=== PATIENT | female | born 1995 | race African-American/Black ===

== ENCOUNTER 2020-04-05 09:05 | Emergency (ER) | payer MEDICAID ==
[~2020-04-05] VITALS: Ht 167.6 cm; Wt 52.1 kg
[2020-04-05] MEDS ORDERED: SODIUM CHLORIDE 0.9% 1,000 ML IV ONE (09:35)
[2020-04-05 10:01] LABS: BASOPHILS % 0.3 % (0.0-2.0); EOSINOPHILS % 2.5 % (0.0-5.0); HEMATOCRIT. 33.9 % (36.0-48.0); HEMOGLOBIN. 11.5 g/dL (12.0-16.0); LYMPHOCYTES % 37.6 % (20.0-50.0); MEAN CORPUSCULAR HEMOGLOBIN 28.9 pg (28.0-32.0); MEAN CORPUSCULAR VOLUME 84.8 fL (81.0-99.0); MEAN PLATELET VOLUME 8.3 fl (7.4-10.4); MONOCYTES % 5.1 % (2.0-8.0); NEUTROPHILS % 54.5 % (40.0-76.0); PLATELET 301 x1000/uL (130-400); RED CELL DISTRIBUTION WIDTH 13.2 % (11.6-14.6)
[2020-04-05 10:07] LABS: CHLORIDE 111 mEq/L (98-107)
[2020-04-05 10:18] LABS: KETONES URINE NEGATIVE (NEGATIVE); LEUKOCYTE ESTERASE URINE NEGATIVE (NEGATIVE); NITRITE URINE NEGATIVE (NEGATIVE); OCCULT BLOOD URINE 3+ (NEGATIVE); PROTEIN URINE 4+ (NEGATIVE); SPECIFIC GRAVITY URINE 1.025 (1.005-1.030); UROBILINOGEN URINE 0.2 E.U./dL (0.2-1.0)
[2020-04-05 10:20] LABS: B-HCG QUANTITATIVE 4 mIU/mL (<3)
[2020-04-05 10:26] LABS: CLARITY URINE TURBID (CLEAR); COLOR URINE BLOODY (YELLOW)
[2020-04-05] MEDS ORDERED: METHYLERGONOVINE MALEATE 0.2 MG/ML IM ONE (11:30)
[2020-04-05] MEDS ORDERED: MISOPROSTOL 200MCG TABLET PO ONE (11:30)
[2020-04-05 12:02] VITALS: BP 120/76
[2020-04-05] MEDS ORDERED: ONDANSETRON 4MG ODT PO ONE (12:15)
== END 2020-04-05 12:12 | disposition home or self-care (01) ==
LOC: ER 09:20
DX: N93.9 Abnormal uterine and vaginal bleeding, unspecified (principal); D64.9 Anemia, unspecified; R42 Dizziness and giddiness; F12.10 Cannabis abuse, uncomplicated; J45.909 Unspecified asthma, uncomplicated; Z98.890 Other specified postprocedural states
CPT/HCPCS: 36415; 76830; 76856; 80053; 81003; 81025; 84702; 85025; 86850; 86900; 86901; 96372; 99284; J2210; J7030; Q0162

== ENCOUNTER 2021-01-31 21:01 | Emergency (ER) | payer MEDICAID ==
[~2021-01-31] VITALS: Ht 167.6 cm; Wt 52.0 kg
[2021-01-31] MEDS ORDERED: KETOROLAC 15MG/ML VIAL IM ONE (21:30)
[2021-01-31] MEDS ORDERED: ACETAMINOPHEN 325MG TABLET PO ONE (21:30)
[2021-01-31] MEDS ORDERED: PROCHLORPERAZINE 10MG/2ML VIAL IV ONE (23:00)
[2021-01-31] MEDS ORDERED: SODIUM CHLORIDE 0.9% 1,000 ML IV ONE (23:00)
[2021-02-01 01:19] VITALS: BP 115/84
== END 2021-02-01 01:19 | disposition home or self-care (01) ==
LOC: ER 21:01
DX: R51.9 Headache, unspecified (principal); M54.2 Cervicalgia; M79.631 Pain in right forearm; M79.632 Pain in left forearm; R03.0 Elevated blood-pressure reading, without diagnosis of hypertension; V49.49XA Driver injured in collision with other motor vehicles in traffic accident, initial encounter; Y93.89 Activity, other specified; Y92.488 Other paved roadways as the place of occurrence of the external cause
CPT/HCPCS: 81025; 93005; 96361; 96372; 96374; 99285; J0780; J1885; J7030